=== PATIENT | male | born 1995 | race African-American/Black ===

== ENCOUNTER 2021-05-11 09:50 | Emergency (ER) | payer MEDICAID ==
[~2021-05-11] VITALS: Ht 177.8 cm; Wt 73.6 kg
[2021-05-11 09:55] VITALS: BP 132/68
[2021-05-11 10:39] LABS: BASOPHILS % (AUTO) 0.1 % (0.0-2.0); EOSINOPHILS % (AUTO) 0 % (1.0-6.0); HEMOGLOBIN 16.8 g/dL (13.5-17.5); LYMPHOCYTES # (AUTO) 0.9 K/uL (1.0-4.8); LYMPHOCYTES % (AUTO) 9.8 % (22.0-44.0); MEAN CORPUSCULAR HEMOGLOBIN 33.6 pg (26.0-34.0); MEAN CORPUSCULAR HGB CONC 33.6 G/dL (31.0-37.0); MEAN CORPUSCULAR VOLUME 100 fL (80-100); MONOCYTES # (AUTO) 0.4 K/uL (0.1-1.0); MONOCYTES % (AUTO) 4.1 % (2.0-9.0); NEUTROPHILS # (AUTO) 8.2 K/uL (1.8-7.7); PLATELET COUNT (AUTO) 133 K/uL (150-450); RED BLOOD CELL COUNT(AUTO) 5.01 MIL/uL (4.50-5.90); RED CELL DISTRIBUTION WIDTH 13.6 % (11.5-14.5)
[2021-05-11 10:44] LABS: ANION GAP 18 mmol/L (8-16); CALCIUM, TOTAL 9.8 mg/dL (8.8-10.5); CARBON DIOXIDE 22 mmol/L (22-29); CHLORIDE 100 mmol/L (98-107); CREATININE 1.12 mg/dL (0.60-1.30); GLOMERULAR FILTR. RATE CALC > 60 mL/min (>60); GLUCOSE,RANDOM 72 mg/dL (70-110); POTASSIUM 4.1 mmol/L (3.5-5.1); SODIUM SERUM 140 mmol/L (136-145); UREA NITROGEN, BLOOD 20 mg/dL (7-18)
[2021-05-11] MEDS ORDERED: KETOROLAC TROMETHAMINE 30 MG/ML VIAL IVP ONE (10:45)
[2021-05-11] MEDS ORDERED: ONDANSETRON HCL 4 MG/2 ML VIAL IVP ONE (10:45)
[2021-05-11] MEDS ORDERED: SODIUM CHLORIDE 0.9% 1,000 ML IV ONE (10:45)
[2021-05-11] MEDS ORDERED: FAMOTIDINE 10 MG/ML 2 ML VIAL IVP ONE (10:45)
[2021-05-11 10:50] LABS: ALANINE AMINOTRANSFERASE 43 U/L (12-78); ALBUMIN 4.9 g/dL (3.4-5.0); ALKALINE PHOSPHATASE 69 U/L (46-116); ASPARTATE AMINOTRANSFERASE 74 U/L (15-37); BILIRUBIN,TOTAL 0.7 mg/dL (0.1-1.0); LIPASE 67 U/L (73-393); TOTAL PROTEIN, SERUM 8.7 g/dL (6.4-8.2)
[2021-05-11] MEDS: MAG HYDROX/AL HYDROX/SIMETH 30 ML SUSP UDCUP PO ONE ×2 (11:05→11:24)
[2021-05-11 11:12] LABS: PROTHROMBIN TIME 10.6 SEC (9.4-11.6)
== END 2021-05-11 12:15 | disposition home or self-care (01) ==
LOC: EMS 09:50
DX: R11.2 Nausea with vomiting, unspecified (principal); F12.90 Cannabis use, unspecified, uncomplicated; F17.210 Nicotine dependence, cigarettes, uncomplicated; Z20.822 Contact with and (suspected) exposure to COVID-19
CPT/HCPCS: 36415; 80053; 83690; 85025; 85610; 85730; 96361; 96374; 96375; 99284; G0480; J1885; J2405; J3490; J7030; U0003

== ENCOUNTER 2021-06-13 00:45 | Emergency (ER) | payer MEDICAID ==
[~2021-06-13] VITALS: Ht 177.8 cm; Wt 76.3 kg
[2021-06-13 00:46] VITALS: BP 134/72
== END 2021-06-13 01:00 | disposition left against medical advice (07) ==
LOC: EMS 00:48
DX: Z53.21 Procedure and treatment not carried out due to patient leaving prior to being seen by health care provider (principal)